=== PATIENT | female | born 1955 | race Caucasian/White ===

== ENCOUNTER → 2018-09-21 10:42 | Outpatient (CLI) | payer MEDICARE, OTHER, SELFPAY ==
--- NOTE | 2018-09-21 10:51 | BI_ITS ---
MAMMOGRAPHY - BILATERAL SCREENING REASON FOR EXAM: Female, 63 years old. Routine annual screening examination. PERTINENT HISTORY: Sister with breast cancer. Mother with breast cancer. Grandmother with breast cancer. Aunt with breast cancer. TECHNIQUE: Digital bilateral breast autumn (3D mammographic acquisition) in the CC and MLO projections. 2-D mediolateral oblique (MLO) and craniocaudad (CC) views of both breasts were obtained. CAD: Full Field Digital Mammography with Computer Added Detection was performed. COMPARISON: Comparison is made with prior examination dated September 18, 2017 and October 03, 2015. FINDINGS: Breast Composition: There are scattered areas of fibroglandular density. There are no dominant masses or suspicious calcifications. No other significant abnormalities are identified. There has been no significant change since the prior study. BI/SCREENING MAMM (CAD), BILAT IMPRESSION: Stable bilateral screening mammogram. Yearly follow-up mammogram recommended. (A) ASSESSMENT CATEGORY: BIRADS Category 1: Negative. A letter regarding these results will be sent to the patient by the facility within 30 days. Approximately 10% of breast cancers are not detected by mammography. A normal mammogram should not delay biopsy of a clinically suspicious abnormality. [id number] Electronically Signed: Madhu Ferreira MD at 13:31 EST Tel [phone], Service support ,
== END ==
PROVIDERS: Family Provider Family Medicine; PCP Family Medicine; Referring Provider Obstetrics & Gynecology; Visit Provider Obstetrics & Gynecology
DX: Z12.31 Encounter for screening mammogram for malignant neoplasm of breast (principal); Z80.3 Family history of malignant neoplasm of breast
CPT/HCPCS: 77063; 77067

== ENCOUNTER → 2019-11-22 07:47 | Outpatient (CLI) | payer MEDICARE, OTHER, SELFPAY ==
[2018-12-14 09:43] VITALS: BMI 34.0
--- NOTE | 2019-11-22 07:50 | BI_ITS ---
MAMMOGRAPHY - BILATERAL SCREENING REASON FOR EXAM: Female, 64 years old. Routine annual screening examination. PERTINENT HISTORY: Sister with breast cancer. Mother with breast cancer. Grandmother with breast cancer. Aunt with breast cancer. TECHNIQUE: Digital bilateral breast alejandra (3D mammographic acquisition) in the CC and MLO projections. 2-D mediolateral oblique (MLO) and craniocaudad (CC) views of both breasts were obtained. CAD: Full Field Digital Mammography with Computer Added Detection was performed. COMPARISON: Comparison is made with prior examination dated September 21, 2018 and September 18, 2017. FINDINGS: Breast Composition: There are scattered areas of fibroglandular density. There are no dominant masses or suspicious calcifications. Stable asymmetry of breast tissue were more breast tissue is seen in the superior retroareolar region of the left breast as compared to the right side. No other significant abnormalities are identified. There has been no significant change since the prior study. BI/SCREEN MAMM (CAD) W/ALEJANDRA BILAT IMPRESSION: Stable bilateral screening mammogram. Yearly follow-up mammogram recommended. (A) ASSESSMENT CATEGORY: BIRADS Category 2: Benign. A letter regarding these results will be sent to the patient by the facility within 30 days. Approximately 10% of breast cancers are not detected by mammography. A normal mammogram should not delay biopsy of a clinically suspicious abnormality. [id number] Electronically Signed: Madhu Ferreira, at 9:36 EST , Service support ,
== END ==
PROVIDERS: Family Provider Family Medicine; PCP Family Medicine; Referring Provider Obstetrics & Gynecology; Visit Provider Obstetrics & Gynecology
DX: Z12.31 Encounter for screening mammogram for malignant neoplasm of breast (principal)
CPT/HCPCS: 77063; 77067

== ENCOUNTER → 2019-12-23 08:36 | Outpatient (CLI) | payer MEDICARE, OTHER, SELFPAY ==
[2019-12-20 11:05] VITALS: BMI 34.0
--- NOTE | 2019-12-23 08:50 | BD_ITS ---
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 COMPARISON: None. FINDINGS: Lumbar Spine (L1-L4): g/cm2 (1.106) / T-score (-0.8) / Z-score (0.8) Findings are suggestive of normal bone density with a low fracture risk. Increased kyphosis. Right Forearm: g/cm2 (0.746) / T-score (-1.5) / Z-score (0.0) BD/Dexa Bone Density Study IMPRESSION: The patient is considered osteopenic as outlined below according to World Alex Organization (WHO) criteria with a low fracture risk. Reference Information: The T-score is the number of standard deviations above or below the standard which is normal for young adults at their peak bone mineral density. The World Health Organization (WHO) interprets the T-scores as follows: Above -1 Normal bone density Between -1 and -2.5 Osteopenia Equal to / or below -2.5 Osteoporosis As a practical clinical guideline, osteopenia may be graded as follows: Mild -1 through -1.5 Moderate -1.6 through -2.0 Severe -2.1 through -2.4 The Z-score is the number of standard deviations above or below age-matched controls. A Z-score of less than -1.5 would be considered abnormal. References: 1. NIH Osteoporosis and Related Bone Diseases http://www.osteo.org 2. International Society for Clinical Densitometry http://www.iscd.org 3. National Osteoporosis Foundation http://www.nof.org Electronically Signed: Madhu Ferreira, at 14:14 EST , Service support ,
[2019-12-23 11:13] LABS: ALB/GLOB Ratio 1.1 RATIO (0.9-2.4); AST(SGOT) 24 U/L (15-37); Alanine Aminotransfer ALT/SGPT 31 U/L (13-56); Alkaline Phosphatase 99 U/L (45-117); Anion Gap 2 (5-15); BUN 13 mg/dL (7-18); BUN/Creat Ratio 18.8 RATIO (10-20); Calcium,Total 9.7 mg/dL (8.5-10.1); Chloride 107 mmol/L (98-107); Creatinine, Serum 0.69 mg/dL (0.55-1.02); EST Glomerular Filtration Rate 90 mL/min (>60); Est Glom Filt Rate - Afr Amer 109 mL/min (>60); Globulin 3.7 g/dL (2.2-4.2); Glucose 92 mg/dL (74-106); Potassium 3.9 mmol/L (3.5-5.1); Protein, Total 7.7 g/dL (6.4-8.2); Sodium Level 140 mmol/L (136-145); Thyroid Stim Hormone (TSH) 2.37 uIU/mL (0.358-3.74)
[2019-12-24 21:25] LABS: Vitamin D 1,25-Dihydroxy 58.5 pg/mL (19.9-79.3)
== END ==
PROVIDERS: Obstetrics & Gynecology; PCP Family Medicine; Referring Provider Nurse Practitioner Women's Health; Visit Provider Nurse Practitioner Women's Health
DX: Z01.419 Encounter for gynecological examination (general) (routine) without abnormal findings (principal); Z78.0 Asymptomatic menopausal state; M85.80 Other specified disorders of bone density and structure, unspecified site; E07.9 Disorder of thyroid, unspecified; Z92.89 Personal history of other medical treatment; Z13.220 Encounter for screening for lipoid disorders; Z13.21 Encounter for screening for nutritional disorder; Z96.643 Presence of artificial hip joint, bilateral
CPT/HCPCS: 36415; 77080; 80053; 82652; 84443

== ENCOUNTER → 2020-09-22 | Outpatient (CLI) | payer MEDICARE, OTHER, SELFPAY ==
[2019-12-20 11:05] VITALS: BMI 34.0
== END | disposition home or self-care (01) ==
LOC: MTDU 17:14
PROVIDERS: PCP Family Medicine; Referring Provider Physician Assistant Surgical; Visit Provider Physician Assistant Surgical
DX: Z20.828 Contact with and (suspected) exposure to other viral communicable diseases (principal)
CPT/HCPCS: 87635; C9803; U0003

== ENCOUNTER → 2020-12-04 07:18 | Outpatient (CLI) | payer MEDICARE, OTHER, SELFPAY ==
[2020-09-22 12:40] VITALS: BMI 30.8
--- NOTE | 2020-12-04 07:21 | BI_ITS ---
MAMMOGRAPHY - BILATERAL SCREENING REASON FOR EXAM: Female, 65 years old. Routine annual screening examination. PERTINENT HISTORY: Sister with breast cancer. Mother with breast cancer. Grandmother with breast cancer. Aunts with breast cancer. TECHNIQUE: Digital bilateral breast alejandra (3D mammographic acquisition) in the CC and MLO projections. 2-D mediolateral oblique (MLO) and craniocaudad (CC) views of both breasts were obtained. CAD: Full Field Digital Mammography with Computer Added Detection was performed. COMPARISON: Comparison is made with prior study dated 11/22/2019 and 09/21/2018. FINDINGS: Breast Composition: There are scattered areas of fibroglandular density. There are no dominant masses or suspicious calcifications. No other significant abnormalities are identified. There has been no significant change since the prior study. BI/SCRN MAMM (CAD)W/ALEJANDRA BILAT IMPRESSION: Stable bilateral screening mammogram. Yearly follow-up mammogram recommended. (A) ASSESSMENT CATEGORY: BIRADS Category 1: Negative. A letter regarding these results will be sent to the patient by the facility within 30 days. Approximately 10% of breast cancers are not detected by mammography. A normal mammogram should not delay biopsy of a clinically suspicious abnormality. [id number] Electronically Signed: Madhu Ferreira MD at 9:13 EST , Service support ,
== END ==
PROVIDERS: PCP Family Medicine; Referring Provider Obstetrics & Gynecology; Visit Provider Obstetrics & Gynecology
DX: Z12.31 Encounter for screening mammogram for malignant neoplasm of breast (principal)
CPT/HCPCS: 77063; 77067

== ENCOUNTER 2022-01-18 09:18 | Outpatient (CLI) | payer MEDICARE, OTHER, SELFPAY ==
--- NOTE | 2022-01-18 09:26 | BI_ITS ---
MAMMOGRAPHY - BILATERAL SCREENING REASON FOR EXAM: Female, 66 years old. Routine annual screening examination. PERTINENT HISTORY: Sister with breast cancer. Mother with breast cancer. Grandmother with breast cancer. Aunts with breast cancer. TECHNIQUE: Digital bilateral breast autumn (3D mammographic acquisition) in the CC and MLO projections. 2-D mediolateral oblique (MLO) and craniocaudad (CC) views of both breasts were obtained. CAD: Full Field Digital Mammography with Computer Added Detection was performed. COMPARISON: Comparison is made with prior study dated 12/04/2020 and 11/22/2019. FINDINGS: Breast Composition: The breasts are heterogeneously dense, which may obscure small masses. There are no dominant masses or suspicious calcifications. Stable asymmetry of breast tissue with more breast tissue is seen in the upper central portion of the left breast as compared to the right side. No focal cluster of microcalcification is seen. No other significant abnormalities are identified. There has been no significant change since the prior study. BI/SCREENING MAMM (CAD), BILAT IMPRESSION: Stable bilateral screening mammogram. Yearly follow-up mammogram recommended. (A) ASSESSMENT CATEGORY: BIRADS Category 2: Benign. A letter regarding these results will be sent to the patient by the facility within 30 days. Approximately 10% of breast cancers are not detected by mammography. A normal mammogram should not delay biopsy of a clinically suspicious abnormality. [id number] Electronically Signed: Madhu Ferreira MD at 11:09 EST ,
== END 2022-01-18 23:59 | disposition home or self-care (01) ==
LOC: OPBI 09:20
PROVIDERS: PCP Family Medicine; Visit Provider Family Medicine
DX: Z12.31 Encounter for screening mammogram for malignant neoplasm of breast (principal); R92.8 Other abnormal and inconclusive findings on diagnostic imaging of breast
CPT/HCPCS: 77067

== ENCOUNTER 2022-03-28 14:33 | Observation (INO) | payer MEDICARE, OTHER, SELFPAY ==
--- NOTE | 2022-03-11 11:52 | PCM.HP.BLA ---
History and Physical Date of Admission: 03/28/22 HPI: The patient is a 66 year old female presenting for pre-operative visit. She is scheduled for TVH, BSO, USLF, A&P repair and cystoscopy, for symptomatic complete uterovaginal prolapse on 03/28/22. Procedure discussed along with risks, benefits and complications. Other alternatives discussed for management. Consent form signed? Yes. ? ? PAST MEDICAL HISTORY No past medical history on file. ? ? PAST SURGICAL HISTORY PAST SURGICAL HISTORY Procedure Laterality Date ? TONSILLECTOMY PRIMARY/SECONDARY <AGE 10 ? ? ? Tonsillectomy ? TOTAL HIP JOINT REPLACEMENT ? 11/29/13 ? right side ? ? ? CURRENT MEDICATIONS Current Outpatient Medications Medication Sig Dispense Refill ? estradiol (ESTRACE) 0.01 % (0.1 mg/gram) vaginal cream apply 1/2 inch of cream to lower vagina qhs 2-3 nights a week. 42.5 g 3 ? Oxyquinoline-Na Lauryl Sulfate (TRIMO-MOLINA JELLY) 0.025-0.01 % gel Use 1 Applicatorful vaginally two times a week. 1 Tube 3 ? polyethylene glycol 3350 (HEALTHYLAX) 17 gram packet DAILY ? ? ? multivitamin ORAL tablet Take 1 tablet by mouth once daily. ? 0 ? No current facility-administered medications for this visit. ? ? ALLERGIES: Hydrocodone-Acetaminophen, Meloxicam, and Penicillins ? PERSONAL HISTORY: SOCIAL HISTORY Social History ? Tobacco Use ? Smoking status: Never Smoker ? Smokeless tobacco: Never Used Vaping Use ? Vaping Use: Never used Substance Use Topics ? Alcohol use: No ? Drug use: No ? FAMILY HISTORY: FAMILY HISTORY FAMILY HISTORY Problem Relation Age of Onset ? Breast Cancer Mother ? ? Heart Father ? ? Breast Cancer Sister ? ? Breast Cancer Maternal Grandmother ? ? Diabetes Paternal Grandmother ? ? Breast Cancer Maternal Aunt ? ? Breast Cancer Maternal Aunt ? ? Breast Cancer Maternal Aunt ? ? ? REVIEW OF SYMPTOMS: GENERAL: denies fevers or chills ENDOCRINOLOGY: has not been on steroids Cardiology : denies palpitations or chest pain Respiratory: denies SOB or cough Hematology: denies history of prolonged bleeding or easy bruising or VTE Allergy: Denies history of personal or family history of allergy to anesthesia ? PHYSICAL EXAMINATION: ? VITALS: There were no vitals taken for this visit. ? GENERAL: The patient is well nourished, well hydrated in no acute distress. , The patient is oriented to time, place, and person. NECK: Supple. No lynphadenopathy, normal thyroid, no thyromegaly. LUNGS: Clear to auscultation bilaterally. no wheezes, rhonchi or rales HEART: Regular rate and rhythm, Normal heart sounds and No murmurs or gallops ? IMPRESSION: Symptomatic complete uterovaginal prolapse ? PLAN: .The risks/benefits/alternatives and personal involved for the planned TVH, BSO, USLOF, A&P repair and cystoscopy were reviewed with the patient. Her questions were answered to her satisfaction and she desires to proceed. Consent was signed. I reviewed with her postop instructions and expectations. g ? ? I have reviewed and updated past medical and surgical history, medications and allergies Assessment & Plan Assessment/Plan (1) Complete uterovaginal prolapse: (2) Cystocele, midline: (3) Rectocele:
--- NOTE | 2022-03-25 06:59 | EKG12_ITS ---
Test Reason : PREOP Blood Pressure : / mmHG Vent. Rate : 074 BPM Atrial Rate : 074 BPM P-R Int : 146 ms QRS Dur : 080 ms QT Int : 366 ms P-R-T Axes : 062 019 -04 degrees QTc Int : 406 ms Normal sinus rhythm Normal ECG Confirmed by MATEO DEAN, EMILIANA ([id number]), news copy editor HATTIE HUANG ([id number]) on 03/25/2022 12:49:46 PM Referred By: Aliya Harvey Confirmed By:EMILIANA GALINDO MD
[2022-03-25 07:24] LABS: Absolute Lymphocyte Count 1.62 X10^3/uL (0.83-4.51); Absolute Neutrophil Count 2.8 X10^3/uL (2.0-7.7); Basophil# 0.08 X10^3/uL; Basophil% 1.5 % (0-1); Eosinophil# 0.19 X10^3/uL; Eosinophils% 3.6 % (0-5); Hematocrit 42.1 % (37-47); Hemoglobin 13.7 g/dL (12.0-15.0); Lymphocyte # 1.62 X10^3/ul (0.83-4.51); Mean Corp Hgb Conc 32.5 g/dL (32-36); Mean Corpuscular Hgb 29.5 pg (27.0-32.0); Mean Corpuscular Volume 90.7 fL (81-99); Mean Platelet Vol. 9.1 fl (6.2-12.0); Monocyte# 0.52 X10^3/uL; NRBC Flagged by Analyzer 0 % (0-5); Neutrophil # 2.79 X10^3/uL (2.7-7.7); Neutrophil % 53.5 % (47-70); Platelet Count 245 K/mm3 (150-450); RBC Distribution Width CV 12.7 % (11.6-14.6); RBC Distribution Width SD 41.6 fl (35.1-43.9); Red Blood Count 4.64 M/mm3 (4.2-5.4); White Blood Count 5.2 K/mm3 (4.4-11.0)
[2022-03-25 07:56] LABS: Anion Gap 4 (5-15); BUN 10 mg/dL (7-18); BUN/Creat Ratio 13.9 RATIO (10-20); Calcium,Total 9.4 mg/dL (8.5-10.1); Chloride 106 mmol/L (98-107); Creatinine, Serum 0.72 mg/dL (0.55-1.02); EST Glomerular Filtration Rate 85 mL/min (>60); Est Glom Filt Rate - Afr Amer 103 mL/min (>60); Glucose 98 mg/dL (74-106); Magnesium 2.4 mg/dL (1.6-2.6); Potassium 4.1 mmol/L (3.5-5.1); Sodium Level 139 mmol/L (136-145)
[2022-03-28] VITALS (11 sets, daily range): BP systolic 107–142; BP diastolic 53–71; PULSE 55–98; RESP 13–18; TEMP 36.3–38; O2SAT 95–100; BMI 30.7
[2022-03-28] MEDS: Enoxaparin 40 MG/0.4 ML Syringe SC (07:00)
[2022-03-28] MEDS: Gabapentin 600 MG Tablet PO (07:00)
[2022-03-28] MEDS: Celecoxib 200 MG Capsule 400 MG PO (07:00)
[2022-03-28] MEDS: Phenazopyridine 95 MG Tablet 190 MG PO (07:00)
[2022-03-28] MEDS: Lactated Ringers 1,000 ML 40 ML IV (07:00)
[2022-03-28] MEDS: Acetaminophen 500 MG Tablet 1000 MG PO ×2 (07:00→17:11)
[2022-03-28] MEDS: Cefazolin 2 GM in 0.9% Normal Saline 100 ML IV (11:17)
[2022-03-28] MEDS: dexAMETHasone 10 MG/ML Vial 8 MG IV (11:27)
--- NOTE | 2022-03-28 11:40 | HYST_PTH ---
PATIENT: VELVET PAYNE LOC: MS3 U#:[id number] AGE/SX: 66/F ROOM: [facility] [place] RE03/28/[address]: Dr. Aliya Harvey MD : 1955 BED: 1 DIS: 03/29/2022 SPEC #: [id number] RECD: 03/28/22 13:30 STATUS: SANDI RICARDO #: [id number] BIBI: 03/28/22 11:[address]: Aliya Harvey DEPT: SURGICAL PATHOLOGY RECD BY: Kitty Espinal ENTERED: 03/29/22 10:38 SP TYPE: HYSTERECT OTHR DR: MD Dr. Naty Mejia MD Tissues: Uterus, NOS Procedures: Surgery Specimen Level II Surgery Specimen Level V HEADER OPERATION: ERAS, total vaginal hysterectomy, uterosacral ligament fixation PRE-OP DIAGNOSIS: Complete uterovaginal prolapse TISSUE SUBMITTED: Uterus, cervix, right fallopian tube and ovary, vaginal mucosa MICROSCOPIC DIAGNOSIS Uterus, hysterectomy: Cervix ? nabothian cysts and chronic inflammation. Endometrium ? weakly proliferative to inactive endometrium with cystic change. Myometrium ? adenomyosis, leiomyoma and calcifications of vessel bravo. Fallopian tube - No pathologic change. Ovary - serous adenoma and corpora albicans. Vaginal mucosa, anterior and posterior repair: Chronic inflammation. AM:malcolm 04/01/2022 MICROSCOPIC DESCRIPTION Slides are reviewed. GROSS DESCRIPTION Received in fixative is one container labeled with the patient's name and designated uterus. The specimen consists of a uterus with attached cervix measuring 10 x 5 x 3.5 cm and weighing 66.7 gm. The cervical os is oval in contour. No mass lesions are identified. The endocervical canal measures 4.5 cm in length and is grossly unremarkable. The triangular endometrial cavity measures 3 x 2.5 cm. The velvety, light melgoza endometrium measures up to 0.2 cm in thickness. Present free in the container is a fallopian tube measuring 4 cm in length and 0.5 cm in diameter. Adjacent to this is a smooth, glistening cystic ovary measuring 2.5 x 2.5 x 1 cm. Serial sections of the ovary reveal a clear fluid-filled cyst measuring 1.8 cm in greatest dimension. Also present in the specimen container are multiple irregular fragments of two glistening, megloza mucosa with attached submucosal tissue. These fragments in aggregate measure 5 x 2 x 0.5 cm and are consistent with vaginal mucosa. The myometrium measures 1.7 cm in greatest dimension and contains a smooth, glistening rubbery nodule measuring 0.8 cm in greatest dimension. Track Announcer sections are submitted as follows: 1 - anterior cervix, 2 - posterior cervix, 3??anterior uterine wall with myometrial mass, 4 - anterior myometrial wall, 5 & 6 - posterior myometrial wall, 7 - fallopian tube, 8-10 - ovary, totally submitted, 11 - vaginal mucosa. / AM:malcolm 03/29/2022 TC:1 CPT: 42866, 16188
[2022-03-28] MEDS: Lactated Ringers @ 40 MLS/HR 40 ML IV ×2 (12:30→17:58)
[2022-03-28 12:46] LABS: Bedside Glucose 90 mg/dL (74-106)
[2022-03-28] MEDS: Lidocaine 1%/Epi 1:200 (30ml) 30 ML AMPUL (13:21)
[2022-03-28] MEDS: Ondansetron 4 MG/2 ML Vial IV (13:32)
--- NOTE | 2022-03-28 13:38 | PCM.OPRPT ---
Problems Associated Problem List Diagnoses (1) Complete uterovaginal prolapse: (2) Cystocele, midline: (3) Rectocele: Report of Operation Date of Procedure: 03/28/22 Pre-Operative Diagnosis: Cystocele, rectocele, complete uterovaginal prolapse Post-Operative Diagnosis: same Surgery/Procedure Performed:: TVH, RSO, USLF, A+P repair and cystoscopy Description of Surgical Findings:: normal cervix and vagina, normal tubes and ovaries Surgeon: Aliya Harvey hand stonecutter: Sonia Blair hand stonecutter: Lyndsey Eduardo Type of Anesthesia: General Anesthesiologist: Kelsey Saravia Special Medications: noen Specimen's removed: uterus, cervix, right tube and ovary Drains: king Estimated Blood Loss (mL): 50 Fluids Replaced: 1500 Description of Procedure: The patient was taken to the operating room where she was prepped and draped in the normal sterile fashion in the dorsal lithotomy position. A weighted speculum was placed in the vagina and the anterior lip of the cervix was grasped with a Annie clamp. The vaginal epithelium was infiltrated circumferentially around the cervix with [1% Xylocaine with dilute epinephrine solution]. An incision was made [around the entire cervix] with a scalpel and the vaginal epithelium was dissected back with blunt and sharp dissection. The anterior colpotomy incision was made sharply. Entry into the anterior cul-de-sac was confirmed by visualization of the uterine fundus and bowel behind the uterus. [The posterior colpotomy was made with the Triana scissors. The posterior peritoneum was secured to the posterior vaginal cuff with an [id number] 0 Vicryl suture. The Mikayla retractor was placed in the posterior colpotomy incision.] The uterosacral ligaments were clamped with Gisel clamps transected and suture ligated on both sides and excellent hemostasis of the pedicles was noted. The cardinal ligament was serially clamped, transected and ligated with the LigaSure device. The utero-ovarian ligaments were clamped, sealed and transected dissected all with the LigaSure device. The right ovary was then identified and I was able to clamp across the infundibulopelvic ligament with the LigaSure device and seal and transect the utero-ovarian ligament. The uterus was brought out through the colpotomy incision intact. The left tube and ovary were very high in very lateral to the pelvic sidewall. I could not grasp them with the Louise clamp and pulled them safely away from the pelvic sidewall to remove them. Decision was made to leave them intact. The ovary was small and atrophic. The pedicles were all examined again and found to be hemostatic. The uterosacral ligament fixation was then performed. A single Prolene suture was placed under the vaginal epithelium anteriorly, through the lower portion of the uterosacral ligament and through the lower portion of the vaginal epithelium. Care was taken to make sure it did not penetrate all the way through the vagina to be but was left underneath the epithelium. Same procedures performed on the contralateral side. PDS sutures were then placed through the vaginal epithelium epithelium posteriorly, placed through the uterosacral ligament and through the anterior vaginal epithelium. 2 PDS sutures were placed on the right side of the vaginal cuff and 2 on the left. These were then secured down. The vaginal epithelium was closed with an 0 Vicryl suture over the Prolene suture. A single [id number] Vicryl suture was needed in the midline. Hemostasis was noted the vaginal cuff. A very small anterior repair was performed. Xylocaine with dilute epinephrine solution was used to infiltrate the vaginal epithelium. An incision was made in the epithelium and the Metzenbaum scissors were dissected used to dissect the epithelium away from the underlying tissue with sharp dissection. The tissue was grasped with Allis clamps and the underlying tissue was dissected off with blunt and sharp dissection. The tissue was then imbricated with 0 Vicryl sutures that were tied down. A small amount of vaginal epithelium was amputated and the vaginal epithelium was closed with 3-0 Vicryl in a running locked fashion.. The posterior pair was then performed. The vaginal epithelium over the perineal body and in the midline and the posterior vaginal wall was infiltrated with the same local anesthetic. An incision was made across the perineal body at the the vaginal introitus from 4-7 o'clock. Some vaginal epithelium was dissected off the perineal body and the scissors were used to undermine and transect the vaginal epithelium in the midline. Allis clamps and T clamps were used to hold the vaginal epithelium and underlying tissue was dissected off with blunt and sharp dissection. A finger was placed in the rectum as I placed the rectocele sutures. 0 Vicryl pop-off sutures were used to reapproximate vaginal tissue over the rectocele and the rectocele was tucked. These were tied down. On digital exam, the were no sutures penetrating the rectum.a [id number] suture was placed in the perineal body to help build this up. The vaginal epithelium was then reapproximated with 2-0 Vicryl suture in a running standard fashion. Excellent hemostasis was noted. The vaginal cuff was hemostatic and excellent support was noted. The King was left to straight drain. The vaginal sweep was completed by me. All sponge lap and needle counts were correct. Patient was awakened and taken to the recovery room in stable condition. Grafts/Implants Used: none Procedure Start Time: 11:37 Procedure Stop Time: 13:33 Complications none Admit VTE Documentation VTE Present on Admission: No VTE Mechan Device Prophylaxis: SCD's VTE Pharm Prophylaxis ordered?: Yes
[2022-03-28] MEDS: oxyCODONE 5 MG Tablet PO (17:11)
[2022-03-28] MEDS: Docusate Sodium 100 MG Capsule PO (21:18)
[2022-03-29] MEDS: Acetaminophen 500 MG Tablet 1000 MG PO ×3 (00:03→11:40)
[2022-03-29 02:55] VITALS: BP 110/53; PULSE 54; RESP 16; TEMP 36.4; O2SAT 95
[2022-03-29 04:09] LABS: Hematocrit 36.2 % (37-47); Hemoglobin 12.1 g/dL (12.0-15.0); Mean Corp Hgb Conc 33.4 g/dL (32-36); Mean Corpuscular Hgb 29.8 pg (27.0-32.0); Mean Corpuscular Volume 89.2 fL (81-99); Mean Platelet Vol. 9.6 fl (6.2-12.0); Platelet Count 230 K/mm3 (150-450); RBC Distribution Width CV 12.4 % (11.6-14.6); RBC Distribution Width SD 40.9 fl (35.1-43.9); Red Blood Count 4.06 M/mm3 (4.2-5.4); White Blood Count 9.1 K/mm3 (4.4-11.0)
[2022-03-29 05:23] VITALS: BP 103/55; PULSE 68; RESP 18; TEMP 36.4; O2SAT 98
--- NOTE | 2022-03-29 08:15 | PCM.PN.OB ---
Subjective Subjective Pain well cotnrolled. Denies N/V. Freddy. po. No vaginal bleeding Objective Data Objective Data Vital Signs: Vital Signs Temp Pulse Resp BP Pulse Ox 97.5 F L 68 18 103/55 L 98 03/29/22 05:23 03/29/22 05:23 03/29/22 05:23 03/29/22 05:23 03/29/22 05:23 Oxygen Flow Rate (L/min) 4 Oxygen Delivery Method Room Air Weight: 88.9 kg Body Mass Index (BMI) 30.7 Intake & Output: Intake and Output for Last 24 Hours 03/27/22 03/28/22 03/29/22 23:59 23:59 23:59 Intake Total 1650.67 / 2650.67 1999 / 1999 Output Total 730 / 1680 1900 / 1900 Balance 920.67 / 970.67 100 / 100 Lab / Micro Data Result Diagrams: 03/29/22 03:46 03/25/22 07:12 Labs: Laboratory Results - last 24 hr 03/28/22 10:25: POC Glucose 90 03/29/22 03:46: WBC 9.1, RBC 4.06 L, Hgb 12.1, Hct 36.2 L, MCV 89.2, MCH 29.8, MCHC 33.4, RDW Std Deviation 40.9, RDW Coeff of [place] 12.4, Plt Count 230, MPV 9.6 Physical Exam Narrative alert, awake, NAD Abd- soft, nondistended, no rebound or guarding vaginal packing removed and had small amount of blood tinge, <25 % king removed without difficulty Assessment & Plan (1) Complete uterovaginal prolapse: PLAN: POD#1 s/p TVH, RSO, USLF, A&P repair doing well hgb stable voiding trial this am, if able to empty bladder home w/ routine instructions declines rx for pain
--- NOTE | 2022-03-29 08:17 | PCM.DC.SUM ---
Providers Date of Admission: 03/28/22 Primary Care Physician: Dr. Naty Gupta MD Reason For Visit: VAG HYSTER,LIGAMENT FIXATION,A&P,BSO,CYSTO Diagnosis Discharge Diagnosis (1) Complete uterovaginal prolapse: Status: Acute Code(s): N81.3 - Complete uterovaginal prolapse Medications at Discharge Home Medications Alive Women's 50 Plus Gummy 1 tab PO DAILY 03/21/22 polyethylene glycol 3350 [Miralax] 17 g PO DAILY 03/21/22 estradiol 1 g VAGINAL MOFR #0 g 03/29/22 Hospital Course Operations - (TVH, RSO, A+P repair, USLF and cysto on 03/28/22 for symptomatic uterovaginal prolapse) Summary of Care Provided Hospital Course: Surgical obs overnight, did well. Voiding trial this am on POD#1 and home if passes w/ routine instructions Weight / BMI Weight Weight: 88.9 kg Body Mass Index (BMI) 30.7 ABG / Lab / Microbiology Data Result Diagrams: 03/29/22 03:46 03/25/22 07:12 Laboratory: Laboratory Results - last 24 hr 03/28/22 10:25: POC Glucose 90 03/29/22 03:46: WBC 9.1, RBC 4.06 L, Hgb 12.1, Hct 36.2 L, MCV 89.2, MCH 29.8, MCHC 33.4, RDW Std Deviation 40.9, RDW Coeff of [place] 12.4, Plt Count 230, MPV 9.6 D/C Instructions May resume sexual activity in: 6-8 weeks and - (Nothing in your vagina for 6 weeks. No vaginal or anal intercourse for 6-8 weeks) Cleanse incision/area with: Soap & Water and - (Your incisions have skin glue, it can get wet, leave the glue on until it falls off. ) Please Follow Up With: Aliya Harvey MD When: With my office in 1-2 and 6 weeks or as needed. [phone] Meaningful Use Info Meaningful Use Diagnoses (Choose all that apply): None applicable Discharge Plan Admission Admit Date/Time: 03/28/22 14:33 Primary Reason for Your Visit: hysterectomy and vaginal suspension Attending Provider: Aliya Harvey Primary Care Provider: Naty Gupta Consulting Providers: Omari Walker Discharge Orders/Prescriptions Prescriptions: Continued polyethylene glycol 3350 [Miralax] 17 gram Powder In Packet 17 g PO DAILY RF: 0 Alive Women's 50 Plus Gummy 120 mcg-150 mcg -37.5 mg Tablet,Chewable 1 tab PO DAILY RF: 0 estradiol 0.01 % (0.1 mg/gram) Cream 1 g VAGINAL MOFR Qty: 0 RF: 0 Other Ambulatory Orders: 12 Lead EKG (Routine) Timeframe: [id number] Location: None Selected Ordered By: Dr. Aliya Harvey Referrals / Follow Up: Naty Gupta MD [Primary Care Provider] - Disposition Disposition (needs filled in before D/C Order can be placed): Home, Self Care
[2022-03-29 08:42] VITALS: BP 122/48; PULSE 68; RESP 18; TEMP 36.7; O2SAT 100
[2022-03-29] MEDS: Docusate Sodium 100 MG Capsule PO (08:59)
[2022-03-29] MEDS: 0.9% Saline Lock 10 ML Syringe IV (09:01)
--- NOTE | 2022-03-29 09:50 | PHA.DC.MR ---
Pharmacy Service has performed discharge medication reconciliation for this patient. No new medications at time of discharge review. Medications reviewed are from previously reported home medications. Home Medications Alive Women's 50 Plus Gummy 1 tab PO DAILY 03/21/22 polyethylene glycol 3350 [Miralax] 17 g PO DAILY 03/21/22 estradiol 1 g VAGINAL MOFR #0 g 03/29/22 The patient's discharge medication list was reviewed for discrepancies and discrepancies were resolved.
[2022-03-29 09:54] VITALS: O2SAT 96
[2022-03-29 11:38] VITALS: BP 123/58; PULSE 70; RESP 18; TEMP 36.6; O2SAT 99
[2022-03-29] MEDS: oxyCODONE 5 MG Tablet PO (11:40)
[2022-03-29 15:45] VITALS: BP 133/63; PULSE 68; RESP 18; TEMP 36.6; O2SAT 100
== END 2022-03-29 16:17 | disposition home or self-care (01) ==
LOC: MS3 15:13 → SDC 03-29 07:22
PROVIDERS: Anesthesiology; Obstetrics & Gynecology; Admitting Provider Obstetrics & Gynecology; PCP Family Medicine; Referring Provider Obstetrics & Gynecology; Visit Provider Obstetrics & Gynecology
PROC: (CPT 58260; principal; 2022-03-28 11:20)
DX: N81.3 Complete uterovaginal prolapse (principal); M19.90 Unspecified osteoarthritis, unspecified site; Z79.899 Other long term (current) drug therapy; R06.02 Shortness of breath; R25.2 Cramp and spasm; K59.00 Constipation, unspecified; D25.9 Leiomyoma of uterus, unspecified; N88.8 Other specified noninflammatory disorders of cervix uteri
CPT/HCPCS: 58262; 57260; 00944; 36415; 80048; 82962; 83735; 85025; 85027; 86850; 86900; 86901; 88302; 88307; 93005; 99218; J7120; A4216; G0378; J2405; J3475

== ENCOUNTER → 2023-01-20 | Outpatient (CLI) | payer MEDICARE, OTHER, SELFPAY ==
--- NOTE | 2023-01-20 11:57 | BI_ITS ---
MAMMOGRAPHY - BILATERAL SCREENING REASON FOR EXAM: Female, 67 years old. Routine annual screening examination. PERTINENT HISTORY: Sister with breast cancer. Mother with breast cancer. Grandmother with breast cancer. Aunt with breast cancer. TECHNIQUE: Digital bilateral breast alejandra (3D mammographic acquisition) in the CC and MLO projections. 2-D mediolateral oblique (MLO) and craniocaudad (CC) views of both breasts were obtained. CAD: Full Field Digital Mammography with Computer Added Detection was performed. COMPARISON: Comparison is made with prior examination dated January 18, 2022. FINDINGS: Breast Composition: The breasts are heterogeneously dense, which may obscure small masses. There are no dominant masses or suspicious calcifications. Stable asymmetry of breast tissue where more breast tissue is seen in the upper central aspect of the left breast as compared to the right side. No other significant abnormalities are identified. There has been no significant change since the prior study. BI/SCRN MAMM (CAD)W/ALEJANDRA BILAT IMPRESSION: Stable bilateral screening mammogram. Yearly follow-up mammogram recommended. (A) ASSESSMENT CATEGORY: BIRADS Category 2: Benign. A letter regarding these results will be sent to the patient by the facility within 30 days. Approximately 10% of breast cancers are not detected by mammography. A normal mammogram should not delay biopsy of a clinically suspicious abnormality. [id number] Electronically Signed: Madhu Ferreira MD at 13:03 EST ,
== END | disposition home or self-care (01) ==
LOC: OPBI 11:52
PROVIDERS: PCP Family Medicine; Referring Provider Family Medicine; Visit Provider Family Medicine
DX: Z12.31 Encounter for screening mammogram for malignant neoplasm of breast (principal); Z80.3 Family history of malignant neoplasm of breast
CPT/HCPCS: 77063; 77067

== ENCOUNTER → 2024-01-26 | Outpatient (CLI) | payer MEDICARE, OTHER, SELFPAY ==
--- NOTE | 2024-01-26 10:04 | BI_ITS ---
MAMMOGRAPHY - BILATERAL SCREENING REASON FOR EXAM: Female, 68 years old. Routine annual screening examination. PERTINENT HISTORY: Sister with breast cancer. Mother with breast cancer. Grandmother with breast cancer. Aunts with breast cancer. TECHNIQUE: Digital bilateral breast alejandra (3D mammographic acquisition) in the CC and MLO projections. 2-D mediolateral oblique (MLO) and craniocaudad (CC) views of both breasts were obtained. CAD: Full Field Digital Mammography with Computer Added Detection was performed. COMPARISON: Comparison is made with prior study dated January 20, 2023 and January 18, 2022. FINDINGS: Breast Composition: The breasts are heterogeneously dense, which may obscure small masses. There are no dominant masses or suspicious calcifications. Stable asymmetry of breast tissue with more breast tissue is seen in the upper central aspect of the left breast as compared to the right side. No other significant abnormalities are identified. There has been no significant change since the prior study. BI/SCRN MAMM (CAD)W/ALEJANDRA BILAT IMPRESSION: Stable bilateral screening mammogram. Yearly follow-up mammogram recommended. (A) ASSESSMENT CATEGORY: BIRADS Category 2: Benign. A letter regarding these results will be sent to the patient by the facility within 30 days. Approximately 10% of breast cancers are not detected by mammography. A normal mammogram should not delay biopsy of a clinically suspicious abnormality. [id number] Electronically Signed: Madhu Ferreira MD at 13:41 EDT ,
== END | disposition home or self-care (01) ==
LOC: OPBI 10:01
PROVIDERS: PCP Family Medicine; Referring Provider Nurse Practitioner Family; Visit Provider Nurse Practitioner Family
DX: Z12.31 Encounter for screening mammogram for malignant neoplasm of breast (principal); Z80.3 Family history of malignant neoplasm of breast
CPT/HCPCS: 77063; 77067

== ENCOUNTER → 2025-02-25 | Outpatient (CLI) | payer MEDICARE, OTHER, SELFPAY ==
[2025-02-25 12:41] LABS: Basophil# 0.06 X10^3/uL; Basophil% 1.2 % (0-1); Eosinophil# 0.18 X10^3/uL; Eosinophils% 3.6 % (0-5); Hematocrit 40.6 % (37-47); Hemoglobin 13.3 g/dL (12.0-15.0); Lymphocyte % 27.7 % (19-41); Mean Corp Hgb Conc 32.8 g/dL (32-36); Mean Corpuscular Hgb 29.6 pg (27.0-32.0); Mean Corpuscular Volume 90.2 fL (81-99); Monocyte% 7.9 % (0-10); NRBC Flagged by Analyzer 0 % (0-5); Neutrophil # 2.99 X10^3/uL (2.7-7.7); Neutrophil % 59.2 % (47-70); Platelet Count 252 K/mm3 (150-450); RBC Distribution Width CV 12.8 % (11.6-14.6); RBC Distribution Width SD 42.3 fl (35.1-43.9); White Blood Count 5.1 K/mm3 (4.4-11.0)
[2025-02-25 13:23] LABS: ALB/GLOB Ratio 1.4 RATIO (0.9-2.4); AST(SGOT) 25 U/L (<=31); Alanine Aminotransfer ALT/SGPT 15 U/L (<=34); Albumin, Serum 4.3 g/dL (3.4-4.8); Alkaline Phosphatase 107 U/L (35-104); Anion Gap 10 (5-15); BUN 7 mg/dL (4-19); BUN/Creat Ratio 10.4 RATIO (10-20); Calcium,Total 10.2 mg/dL (7.6-11.0); Carbon Dioxide 23.8 mmol/L (21.0-32.0); Chloride 107 mmol/L (98-108); Cholesterol 233 mg/dL (<=200); Creatinine, Serum 0.64 mg/dL (0.70-1.20); EST Glomerular Filtration Rate 95 (>60); Glucose 112 mg/dL (70-99); High Density Lipoprotein 53 mg/dL; Low Density Lipoprotein Calc. 146 mg/dL; Potassium 4.1 mmol/L (3.3-5.1); Protein, Total 7.3 g/dL (5.9-8.4); Sodium Level 141 mmol/L (133-145); Total Bilirubin 0.48 mg/dL (0.00-1.30); Triglycerides 169 mg/dL; Very Low Density Lipoprotein 34 mg/dL (5-40); cholesterol:hdl ratio screen 4.36
== END | disposition home or self-care (01) ==
LOC: BFHLAB 10:05
PROVIDERS: PCP Family Medicine; Visit Provider Family Medicine
DX: Z00.00 Encounter for general adult medical examination without abnormal findings (principal); E78.5 Hyperlipidemia, unspecified; R53.83 Other fatigue
CPT/HCPCS: 36415; 80053; 80061; 85025

== ENCOUNTER → 2025-03-09 | Outpatient (CLI) | payer MEDICARE, OTHER, SELFPAY ==
--- NOTE | 2025-03-09 10:42 | BI_ITS ---
EXAM: SCRN MAMM (CAD)W/ALEJANDRA BILAT DATE: 03/09/2025 CLINICAL HISTORY: F, Age 69 y/o , SCREENING Sister with breast cancer. Mother with breast cancer. Grandmother with breast cancer. BREAST CANCER RISK ASSESSMENT: Not assessed. TECHNIQUE: Bilateral screening digital breast tomosynthesis with 2D and 3D images. Computer aided detection. COMPARISON: Prior exam(s) dated January 26, 2024.. FINDINGS: TISSUE DENSITY: The breast tissue is heterogenously dense, which may obscure small masses. Bilateral Breast Mammographic Findings: No significant masses, calcifications or other abnormalities are identified. No suspicious masses, areas of developing architectural distortion, or suspicious calcifications. There has been no significant interval change. BI/SCRN MAMM (CAD)W/ALEJANDRA BILAT IMPRESSION: OVERALL FINAL ASSESSMENT: BIRADS 1 NEGATIVE RECOMMENDATION: Routine annual follow-up in 1 Year A letter with findings and recommendations will be mailed to the patient. Reading Location: [place] [id number]
== END | disposition home or self-care (01) ==
LOC: OPBI 10:40
PROVIDERS: PCP Family Medicine; Referring Provider Family Medicine; Visit Provider Family Medicine
DX: Z12.31 Encounter for screening mammogram for malignant neoplasm of breast (principal)
CPT/HCPCS: 77063; 77067